=== PATIENT | female | born 1995 ===

== ENCOUNTER 2018-05-22 14:15 | Outpatient (REF) | payer BC, SELFPAY | END 2018-05-22 14:35 | LOC: NCHCN 14:15 | PROVIDERS: PCP Family Medicine; Visit Provider Nurse Practitioner Family | DX: Z13.29 Encounter for screening for other suspected endocrine disorder (principal) | CPT/HCPCS: 84443 ==

== ENCOUNTER 2019-10-19 17:32 | Outpatient (REF) | payer BC, SELFPAY ==
--- NOTE | 2019-10-19 16:30 | PAPFT_PTH ---
PATIENT: Chetna Belle LOC: [facility]#:[id number] AGE/SX: 24/F ROOM: RE10/19/[address]: Key Rodriguez : 1995 BED: DIS: 10/19/2019 SPEC #: [id number] RECD: 10/20/19 12:55 STATUS: JULI REQ #: [id number] TRINA: 10/19/19 16:[address]: Key Chen DEPT: [facility] Cytology RECD BY: eRina Munoz ENTERED: 10/20/19 12:55 SP TYPE: PAPFT OTHR DR: Mary Costa Tissues: 1 - CX/ENDOCX FOR PAP SMEARS Procedures: PAP THIN PREP/[facility] Screening Comments: [id number]
== END 2019-10-19 17:52 ==
LOC: NCHCN 17:32
PROVIDERS: PCP Family Medicine; Visit Provider Nurse Practitioner Family
DX: Z12.4 Encounter for screening for malignant neoplasm of cervix (principal)
CPT/HCPCS: 88142

== ENCOUNTER 2024-01-22 10:27 | Outpatient (REF) | payer OTHER, SELFPAY ==
--- NOTE | 2024-01-22 09:00 | PAPFT_PTH ---
PATIENT: Chetna Belle LOC: [facility]#:[id number] AGE/SX: 28/F ROOM: RE01/22/[address]: Key Rodriguez : 1995 BED: DIS: 01/22/2024 SPEC #: [id number] RECD: 01/22/24 16:38 STATUS: JULI RELibby #: [id number] TRINA: 01/22/24 09:[address]: Key Chen DEPT: [facility] Cytology RECD BY: Justine Villalpando ENTERED: 01/22/24 16:38 SP TYPE: PAPFT OTHR DR: Mary Csota Tissues: 1 - CX/ENDOCX FOR PAP SMEARS Procedures: PAP THIN PREP/[facility] Screening Comments: [id number]
== END 2024-01-22 10:28 | disposition home or self-care (01) ==
LOC: NCHCN 10:27
PROVIDERS: PCP Family Medicine; Visit Provider Nurse Practitioner Family
DX: Z12.4 Encounter for screening for malignant neoplasm of cervix (principal)
CPT/HCPCS: 88142; 87624

== ENCOUNTER 2024-06-30 09:36 | Outpatient (REF) | payer OTHER, SELFPAY | END 2024-06-30 09:37 | disposition home or self-care (01) | LOC: NCHCN 09:36 | PROVIDERS: PCP Family Medicine; Visit Provider Internal Medicine | DX: J02.9 Acute pharyngitis, unspecified (principal) | CPT/HCPCS: 87070 ==